=== PATIENT | female | born 1990 | race Asian ===

== ENCOUNTER 2020-11-28 22:35 | Inpatient (IN) | payer BC, SELFPAY ==
[~2020-11-28] VITALS: Ht 154.9 cm; Wt 80.3 kg
[2020-11-28 22:51] VITALS: Ht 154.9 cm; Wt 80.3 kg
[2020-11-29 01:33] LABS: BASOPHIL % 0.2 % (0.2-1.3); CALCIUM 8.4 mg/dL (8.5-10.1); CARBON DIOXIDE 26.8 mmol/L (21-32); CHLORIDE SERUM 102 mmol/L (98-107); CREATININE SERUM 0.9 mg/dL (0.6-1.0); GFR1 > 60 mL/min; GLUCOSE SERUM 97 mg/dL (74-106); PLATELET COUNT 317 x10^3mcL (179-408); POTASSIUM SERUM 3.7 mmol/L (3.5-5.1); RED CELL DISTRIBUTION WIDTH 12.7 % (12.3-17.7); SODIUM SERUM 139 mmol/L (136-145)
[2020-11-29 01:38] LABS: ALKALINE PHOSPHATASE 41 U/L (46-116); ALT/SGPT 24 U/L (14-59); AST/SGOT 42 U/L (15-37); BILIRUBIN TOTAL 0.31 mg/dL (0.20-1.00); C REACTIVE PROTEIN 8.8 mg/dL (<=0.9); LACTIC DEHYDROGENASE (LDH) 412 U/L (100-190); TOTAL PROTEIN, SERUM 7.6 g/dL (6.4-8.2)
[2020-11-29 01:39] LABS: ALBUMIN 3.1 g/dL (3.4-5.0)
[2020-11-29 05:35] LABS: FREE T4 1.37 ng/dL (0.76-1.46); FREE THYROXINE INDEX 3.1 ug/dL (1.4-4.5); T4(THYROXINE) 9.3 ug/dL (4.7-13.3)
[2020-11-29 06:00] LABS: T3 TOTAL 1.09 ng/mL
[2020-11-29 09:21] LABS: microscopic required? YES; urine erythrocyte 1+ (NEGATIVE)
[2020-11-30 12:25] VITALS: BP 94/60
[2020-11-30] MEDS ORDERED: VENTOLIN H0.09 MG/A1 INH (13:01)
[2020-11-30] MEDS ORDERED: ACETAMINOPHEN-H1 TA1 PO (13:01)
[2020-11-30] MEDS ORDERED: DECADRON6 MG PO (13:02)
[2020-11-30] MEDS ORDERED: MUCINEX600 MG PO (13:03)
[2020-11-30] MEDS ORDERED: COUGH FORMULA PO (13:04)
[2020-11-30] MEDS ORDERED: ULTRAM50 MG PO ×2 (13:08→13:49)
[2020-11-30] MEDS ORDERED: IBU800 M2 PO (13:17)
[2020-11-30 17:10] VITALS: BP 101/62
[2020-11-30 18:08] VITALS: BP 94/60
[2020-11-30 21:06] VITALS: BP 98/54
[2020-12-01 04:42] VITALS: BP 95/47
[2020-12-01 09:36] VITALS: BP 96/60
[2020-12-01 11:36] VITALS: BP 102/72
[2020-12-01 17:00] VITALS: BP 120/60
[2020-12-01 20:12] VITALS: BP 97/61
[2020-12-02 05:40] VITALS: BP 106/59
[2020-12-02 08:22] VITALS: BP 103/58
[2020-12-02 11:45] VITALS: BP 95/57
[2020-12-02 15:51] VITALS: BP 96/56
[2020-12-02 20:50] VITALS: BP 120/51
[2020-12-03 05:45] VITALS: BP 109/58
[2020-12-03 08:21] VITALS: BP 105/67
[2020-12-03 11:31] VITALS: BP 93/56
[2020-12-03 16:33] VITALS: BP 94/57
[2020-12-03 20:20] VITALS: BP 98/54
[2020-12-04 05:50] VITALS: BP 104/67
[2020-12-04 08:03] LABS: BASOPHIL % 0.2 % (0.2-1.3); RED CELL DISTRIBUTION WIDTH 12.5 % (12.3-17.7)
[2020-12-04 08:14] LABS: PLATELET COUNT 573 x10^3mcL (179-408)
[2020-12-04 08:41] LABS: CALCIUM 8.6 mg/dL (8.5-10.1); CARBON DIOXIDE 27.4 mmol/L (21-32); CHLORIDE SERUM 103 mmol/L (98-107); CREATININE SERUM 0.7 mg/dL (0.6-1.0); GFR1 > 60 mL/min; GLUCOSE SERUM 77 mg/dL (74-106); POTASSIUM SERUM 3.8 mmol/L (3.5-5.1); SODIUM SERUM 140 mmol/L (136-145)
[2020-12-04 09:34] VITALS: BP 94/46
[2020-12-04] MEDS ORDERED: ZIT250 PO (11:36)
[2020-12-04] MEDS ORDERED: NORCO1 TA2 PO (11:40)
[2020-12-04 13:14] VITALS: BP 104/64
[2020-12-04 14:17] VITALS: BP 104/64
== END 2020-12-04 16:40 | disposition home or self-care (01) | DRG 871 ==
LOC: ED 22:35 → DU 11-29 00:46
PROVIDERS: Internal Medicine; Student in an Organized Health Care Education/Training Program; ADMIT Internal Medicine; ATTEND Internal Medicine
DX: A41.89 Other specified sepsis (principal); U07.1 COVID-19; J12.82 Pneumonia due to coronavirus disease 2019; J96.01 Acute respiratory failure with hypoxia
CPT/HCPCS: 36600; 83880; 84439; 85378; G0378; J0456; J0696; J1100; J1650; J3490; J3535; J7030; J7040; J7060; U0003